=== PATIENT | female | born 1990 | race Caucasian/White ===

== ENCOUNTER 2016-12-13 08:34 | Emergency (ER) | payer OTHER ==
[2016-12-13 08:35] VITALS: BMI 20.4
[2016-12-13] MEDS ORDERED: Sodium Chloride 0.9% 1,000 ML IV STA (09:01)
[2016-12-13] MEDS ORDERED: Alum-Mag Hydrox-Simethicone Susp (30 mL) PO ONE (09:11)
[2016-12-13 09:33] LABS: BASO % 0.4 % (0.0-2.0); EOS # 0.1 K/uL (0.0-0.7); EOS % 1.1 % (0.0-4.0); HEMATOCRIT 41.1 % (34.0-47.0); LYMPH # 2.3 K/uL (1.0-4.3); LYMPH % 32.3 % (20.0-40.0); MEAN CELL VOLUME 88.8 fl (81.0-99.0); MEAN CORPUSCULAR HGB CONC 33.8 g/dL (33.0-37.0); MEAN PLATELET VOLUME 8.5 fl (7.2-11.7); MONO # 0.5 K/uL (0.0-0.8); MONO % 6.9 % (0.0-10.0); NEUT # 4.3 K/uL (1.8-7.0); NEUT % 59.3 % (50.0-75.0); NRBC % 0.1 % (0.0-0.0); WHITE BLOOD COUNT 7.2 K/uL (4.8-10.8)
[2016-12-13 09:43] LABS: ALB/GLOB RATIO 1.3 (1.0-2.1); ALKALINE PHOSPHATASE 79 U/L (38-126); ALT/SGPT 43 U/L (9-52); AST/SGOT 29 U/L (14-36); BILIRUBIN,TOTAL 0.8 mg/dl (0.2-1.3); BLOOD UREA NITROGEN 16 mg/dl (7-17); CALCIUM 9.8 mg/dL (8.4-10.2); CARBON DIOXIDE 24 mmol/L (22-30); CHLORIDE 103 mmol/L (98-107); GFR AFRICAN-AMERICAN > 60; GLUCOSE,RANDOM 99 mg/dL (65-105); LIPASE 76 U/L (23-300); POTASSIUM 3.7 MMOL/L (3.6-5.0); SODIUM 141 mmol/l (132-148)
--- NOTE | 2016-12-13 11:21 | US ---
HISTORY: upper abd pain; pls eval RUQ COMPARISON: None. TECHNIQUE: Sonographic evaluation of the right upper quadrant of the abdomen. FINDINGS: LIVER: Measures 13 cm in length. Normal echogenicity of the liver parenchyma. No mass. No intrahepatic bile duct dilatation. GALLBLADDER: Unremarkable. No gallstones. No sonographic Cummins sign elicited by the technologist. COMMON BILE DUCT: Measures to mm. No stones. No dilatation. PANCREAS: Unremarkable as visualized. No mass. No ductal dilatation. RIGHT KIDNEY: Measures 10 cm in length. Normal echogenicity. No calculus, mass, or hydronephrosis. AORTA: No aneurysmal dilatation. IVC: Unremarkable. OTHER FINDINGS: None . IMPRESSION: Unremarkable right upper quadrant abdominal ultrasound.
--- NOTE | 2016-12-13 13:02 | ED PDOC ---
HPI: Abdomen Time Seen by Provider: 12/13/16 08:59 Chief Complaint (Nursing): GI Problem Chief Complaint (Provider): Epigastric Pain History Per: Patient Onset/Duration Of Symptoms: Days (x 1) Current Symptoms Are (Timing): Still Present Location Of Pain/Discomfort: Epigastric Quality Of Discomfort: Cramping, Burning Associated Symptoms: Nausea, Vomiting Additional Complaint(s): Mikie is a 26 y/o female who presents to the ED with epigastric pain which she describes as cramping and burning with associated nonbloody, nonbilious vomiting and nausea since yesterday. Patient describes pain as nonradiating. She denies chest pain, shortness of breath, cough, or fever. She has not taken any medication for the pain, and denies alcohol or NSAID use. PMD: None Provided Past Medical History Reviewed: Historical Data, Nursing Documentation, Vital Signs - Medical History PMH: No Chronic Diseases - Surgical History Surgical History: Appendectomy - Family History Family History: States: Unknown Family Hx - Social History Current smoker - smoking cessation education provided: No Alcohol: None Drugs: Denies - Immunization History Hx Tetanus Toxoid Vaccination: No Hx Influenza Vaccination: No Hx Pneumococcal Vaccination: No - Home Medications Home Medications: Ambulatory Orders Medication Instructions Recorded Ondansetron [Zofran] 4 mg PO Q6H PRN #10 tab 12/13/16 Ranitidine HCl [Zantac] 150 mg PO BID #14 tablet 12/13/16 - Allergies Allergies/Adverse Reactions: Allergies Allergy/AdvReac Type Severity Reaction Status Date / Time No Known Allergies Allergy Verified 11/28/15 09:37 Review of Systems ROS Statement: Except As Marked, All Systems Reviewed And Found Negative Constitutional: Negative for: Fever Cardiovascular: Negative for: Chest Pain Respiratory: Negative for: Cough, Shortness of Breath Gastrointestinal: Positive for: Nausea, Vomiting (nonbloody, nonbilious), Abdominal Pain (cramping and burning, nonradiating) Physical Exam - Reviewed Nursing Documentation Reviewed: Yes Vital Signs Reviewed: Yes - Physical Exam Appears: Positive for: Non-toxic, No Acute Distress Head Exam: Positive for: ATRAUMATIC, NORMAL INSPECTION, NORMOCEPHALIC Skin: Positive for: Normal Color, Warm, Dry Eye Exam: Positive for: Normal appearance, EOMI, PERRL. Negative for: Nystagmus ENT: Positive for: Normal ENT Inspection Neck: Positive for: Normal, Painless ROM, Supple Cardiovascular/Chest: Positive for: Regular Rate, Rhythm. Negative for: Murmur Respiratory: Positive for: Normal Breath Sounds. Negative for: Wheezing, Respiratory Distress Gastrointestinal/Abdominal: Positive for: Normal Exam, Bowel Sounds, Soft, Tenderness (epigastric) Back: Positive for: Normal Inspection Extremity: Positive for: Normal ROM. Negative for: Deformity Neurologic/Psych: Positive for: Alert, Oriented - Laboratory Results Result Diagrams: 12/13/16 09:25 12/13/16 09:25 Medical Decision Making Medical Decision Making: Time: 9:01 Initial Impression: Epigastric Pain Initial Plan: --CMP --Lipase --Urine dipstick --Urine --CBC --blood work reivewd, unremarkable, neg --Pepcid --iv fluid --maalox --US abd unremarkable Time: 11:20 US Abdomen FINDINGS: LIVER: Measures 13 cm in length. Normal echogenicity of the liver parenchyma. No mass. No intrahepatic bile duct dilatation. GALLBLADDER: Unremarkable. No gallstones. No sonographic Cummins sign elicited by the technologist. COMMON BILE DUCT: Measures to mm. No stones. No dilatation. PANCREAS: Unremarkable as visualized. No mass. No ductal dilatation. RIGHT KIDNEY: Measures 10 cm in length. Normal echogenicity. No calculus, mass, or hydronephrosis. AORTA: No aneurysmal dilatation. IVC: Unremarkable. OTHER FINDINGS: None . IMPRESSION: Unremarkable right upper quadrant abdominal ultrasound. Time: 12:30 --Patient was reevaluated through primer inspector, Leroy. --Patient has improved and denies current symptoms. --Patient is stable for discharge, and was given prescriptions for Zantac and Zofran. --She was instructed to follow up at the clinic. Scribe Attestation: Documented by Bradley Oneal, acting as a scribe for Zackery Mcdaniels III, MD Provider Scribe Attestation: All medical record entries made by the Scribe were at my direction and personally dictated by me. I have reviewed the chart and agree that the record accurately reflects my personal performance of the history, physical exam, medical decision making, and the department course for this patient. I have also personally directed, reviewed, and agree with the discharge instructions and disposition. Disposition - Clinical Impression Clinical Impression: Gastritis, Abdominal pain - Patient ED Disposition Is Patient to be Admitted: No Counseled Patient/Family Regarding: Studies Performed, Diagnosis, Need For Followup, Rx Given - Disposition Referrals: [facility] [Outside] Disposition: Routine/Home Disposition Time: 12:40 Condition: STABLE Additional Instructions: Avoid NSAIDs, alcohol, spicy food or caffeine. Return to ER for any worse or new symptoms. Take medications as directed. Evite los NSAIDS (motrin, alleve or advil), el alcohol, los alimentos picantes o la cafena. Vuelva al ER para cualquier sntoma nuevo o peor. [place] los medicamentos segn las indicaciones. Prescriptions: Ondansetron [Zofran] 4 mg PO Q6H PRN #10 tab PRN Reason: Nausea/Vomiting Ranitidine HCl [Zantac] 150 mg PO BID #14 tablet Instructions: Gastritis (ED), Acute Abdominal Pain (ED), Epigastric Pain (ED) Forms: [facility] (Kazakh) Print Language: LITHUANIAN - POA Present On Arrival: None
[2016-12-13 13:07] VITALS: BP 126/76; PULSE 78; RESP 19; TEMP 96.7; O2SAT 98
--- NOTE | 2016-12-13 17:04 | ED PDOC ---
HPI: Abdomen Time Seen by Provider: 12/13/16 08:59 Chief Complaint (Nursing): GI Problem Chief Complaint (Provider): Epigastric Pain History Per: Patient, Finance Broker (Eddie EDT) Onset/Duration Of Symptoms: Days (x 1) Severity: Mild Location Of Pain/Discomfort: Epigastric. denies: RLQ, LLQ Quality Of Discomfort: Cramping, Burning Associated Symptoms: Nausea, Vomiting, Loss Of Appetite. denies: Diarrhea, Back Pain, Chest Pain Exacerbating Factors: None Alleviating Factors: None Additional Complaint(s): 26yo female c/o epigastric pain and burning for last 2 days. Symptoms associated w nausea and several episodes nonbloody vomiting. Denies radiation of pain, fever, dark/tarry stools or BRBPR. Has used Advil in past but not recently. Past Medical History Reviewed: Historical Data, Nursing Documentation, Vital Signs Vital Signs: Last Vital Signs Temp 96.7 F L 12/13/16 13:06 Pulse 78 12/13/16 13:06 Resp 19 12/13/16 13:06 BP 126/76 12/13/16 13:06 Pulse Ox 98 12/13/16 13:06 - Medical History PMH: No Chronic Diseases - Surgical History Surgical History: Appendectomy - Family History Family History: States: Unknown Family Hx - Social History Current smoker - smoking cessation education provided: No Alcohol: None Drugs: Denies - Immunization History Hx Tetanus Toxoid Vaccination: No Hx Influenza Vaccination: No Hx Pneumococcal Vaccination: No - Home Medications Home Medications: Ambulatory Orders Medication Instructions Recorded Ondansetron [Zofran] 4 mg PO Q6H PRN #10 tab 12/13/16 Ranitidine HCl [Zantac] 150 mg PO BID #14 tablet 12/13/16 - Allergies Allergies/Adverse Reactions: Allergies Allergy/AdvReac Type Severity Reaction Status Date / Time No Known Allergies Allergy Verified 11/28/15 09:37 Review of Systems ROS Statement: Except As Marked, All Systems Reviewed And Found Negative Constitutional: Negative for: Fever, Chills Eyes: Negative for: Pain ENT: Negative for: Nose Pain, Nose Discharge Cardiovascular: Negative for: Chest Pain, Palpitations Gastrointestinal: Positive for: Nausea, Vomiting, Abdominal Pain Genitourinary Female: Negative for: Dysuria, Frequency, Vaginal Bleeding Musculoskeletal: Negative for: Neck Pain, Arm Pain, Back Pain Skin: Negative for: Rash, Lesions Neurological: Negative for: Weakness, Numbness, Change in Speech, Dizziness Psych: Negative for: Anxiety Physical Exam - Reviewed Nursing Documentation Reviewed: Yes Vital Signs Reviewed: Yes - Physical Exam Appears: Positive for: Well, Non-toxic, No Acute Distress Head Exam: Positive for: ATRAUMATIC, NORMAL INSPECTION, NORMOCEPHALIC Skin: Positive for: Normal Color, Warm, DRY Eye Exam: Positive for: EOMI, Normal appearance, PERRL ENT: Positive for: Normal ENT Inspection Neck: Positive for: Normal, Painless ROM Cardiovascular/Chest: Positive for: Regular Rate, Rhythm Respiratory: Positive for: CNT, Normal Breath Sounds Gastrointestinal/Abdominal: Positive for: Normal Exam, Bowel Sounds, Soft. Negative for: Tenderness Back: Positive for: Normal Inspection Extremity: Positive for: Normal ROM Neurologic/Psych: Positive for: Alert, Oriented - Laboratory Results Result Diagrams: 12/13/16 09:25 12/13/16 09:25 - ECG O2 Sat by Pulse Oximetry: 98 Medical Decision Making Medical Decision Making: workup initiated for epigastric pain, preg neg IVF bolus, maalox, pepcid and zofran US abdomen performed, report states unremarkable Labs reviewed and no clinically significant abnormalities Over course of ED stay she improved, denied pain or nausea on re-eval. Abdomen was nontender. She will be discharged w zantac and zofran for followup in [facility], indications for return to ED discussed. hospital clerk used. Disposition - Clinical Impression Clinical Impression: Gastritis, Abdominal pain - Patient ED Disposition Is Patient to be Admitted: No Counseled Patient/Family Regarding: Studies Performed, Diagnosis, Need For Followup, Rx Given - Disposition Referrals: [facility] [Outside] Disposition: Routine/Home Disposition Time: 12:40 Condition: STABLE Additional Instructions: Avoid NSAIDs, alcohol, spicy food or caffeine. Return to ER for any worse or new symptoms. Take medications as directed. Evite los NSAIDS (motrin, alleve or advil), el alcohol, los alimentos picantes o la cafena. Vuelva al ER para cualquier sntoma nuevo o peor. [place] los medicamentos segn las indicaciones. Prescriptions: Ondansetron [Zofran] 4 mg PO Q6H PRN #10 tab PRN Reason: Nausea/Vomiting Ranitidine HCl [Zantac] 150 mg PO BID #14 tablet Instructions: Gastritis (ED), Acute Abdominal Pain (ED), Epigastric Pain (ED) Forms: [facility] (Irish) Print Language: GERMAN - POA Present On Arrival: None
== END 2016-12-13 13:07 | disposition home or self-care (01) ==
LOC: H.ER 08:34
DX: K29.70 Gastritis, unspecified, without bleeding (principal)
CPT/HCPCS: 76705; 80053; 81025; 83690; 85025; 99281; J2405; J7040

== ENCOUNTER 2018-08-01 09:28 | Emergency (ER) | payer OTHER ==
[2018-08-01 09:49] VITALS: RESP 16; O2SAT 100; BMI 21.7
[2018-08-01] MEDS ORDERED: cefTRIAXone (Rocephin) 250 mg Inj IM ONE (10:37)
[2018-08-01 10:55] LABS: SQUAMOUS EPITHIAL 21 /hpf (0-5); URINE AMORPHOUS SEDIMENT MODERATE /ul (<OCC); URINE BACTERIA RARE (<OCC); URINE BILIRUBIN NEGATIVE (NEGATIVE); URINE BLOOD NEGATIVE (NEGATIVE); URINE CLARITY TURBID (Clear); URINE COLOR YELLOW (YELLOW); URINE GLUCOSE (UA) NEG (NEGATIVE); URINE LEUKOCYTE ESTERASE MOD Leu/uL (Negative); URINE PROTEIN NEGATIVE (NEGATIVE); URINE UROBILINOGEN 0.2-1.0 mg/dL (0.2-1.0)
[2018-08-01] MEDS ORDERED: cefTRIAXone (Rocephin) 250 mg Inj ONE (10:56)
[2018-08-01 11:00] LABS: BASO % 0.5 % (0.0-2.0); EOS # 0.1 K/uL (0.0-0.7); EOS % 1.2 % (0.0-4.0); LYMPH # 1.9 K/uL (1.0-4.3); LYMPH % 24.3 % (20.0-40.0); MEAN CORPUSCULAR HGB CONC 33.7 g/dL (33.0-37.0); MEAN PLATELET VOLUME 8.4 fl (7.2-11.7); MONO # 0.6 K/uL (0.0-0.8); MONO % 7.2 % (0.0-10.0); NEUT # 5.2 K/uL (1.8-7.0); NEUT % 66.8 % (50.0-75.0); NRBC % 0.1 % (0.0-0.0); RBC 4.33 Mil/uL (3.80-5.20); RED CELL DISTRIBUTION WIDTH 13.7 % (11.5-14.5); WHITE BLOOD COUNT 7.7 K/uL (4.8-10.8)
[2018-08-01 11:14] LABS: BLOOD UREA NITROGEN 16 mg/dl (7-17); CALCIUM 9.2 mg/dL (8.4-10.2); GFR NON-AFRICAN AMERICAN > 60
--- NOTE | 2018-08-01 11:33 | ED PDOC ---
HPI: General Adult Time Seen by Provider: 08/01/18 09:39 Chief Complaint (Nursing): Abdominal Pain Chief Complaint (Provider): Abdominal Pain History Per: Patient History/Exam Limitations: no limitations Onset/Duration Of Symptoms: Days (1) Additional Complaint(s): 27 y/o female presents to the ED complaining of urination pain, vaginal discharge, and lower abdominal pain since 2 days ago. Patient notes she has a rash to her labia and is sexually active. She reports she occasionally uses condoms. Patient reports of a fever yesterday and came down with Tylenol, which no fever today. Patient denies history of STD. PMD: none provided Past Medical History Reviewed: Historical Data, Nursing Documentation, Vital Signs Vital Signs: Last Vital Signs Temp 98.8 F 08/01/18 09:48 Pulse 93 H 08/01/18 09:48 Resp 16 08/01/18 09:48 BP 115/70 08/01/18 09:48 Pulse Ox 100 08/01/18 09:48 Primary Care Provider: FAMILY PROVIDER,NO - Medical History PMH: Denies: Sexually Transmitted Disease - Surgical History Surgical History: Appendectomy - Family History Family History: States: Unknown Family Hx - Immunization History Hx Tetanus Toxoid Vaccination: No Hx Influenza Vaccination: No Hx Pneumococcal Vaccination: No - Home Medications Home Medications: Ambulatory Orders Medication Instructions Recorded Ondansetron [Zofran] 4 mg PO Q6H PRN #10 tab 12/13/16 Ranitidine HCl [Zantac] 150 mg PO BID #14 tablet 12/13/16 Acyclovir 400 mg PO TID #30 tablet 08/01/18 - Allergies Allergies/Adverse Reactions: Allergies Allergy/AdvReac Type Severity Reaction Status Date / Time No Known Allergies Allergy Verified 11/28/15 09:37 Review of Systems ROS Statement: Except As Marked, All Systems Reviewed And Found Negative Physical Exam - Reviewed Nursing Documentation Reviewed: Yes Vital Signs Reviewed: Yes - Physical Exam Appears: Positive for: Well, Non-toxic, No Acute Distress Head Exam: Positive for: ATRAUMATIC, NORMAL INSPECTION, NORMOCEPHALIC Skin: Positive for: Normal Color, Warm, DRY Eye Exam: Positive for: EOMI, Normal appearance, PERRL ENT: Positive for: Normal ENT Inspection Neck: Positive for: Normal, Painless ROM Cardiovascular/Chest: Positive for: Regular Rate, Rhythm Respiratory: Positive for: CNT, Normal Breath Sounds Gastrointestinal/Abdominal: Positive for: Normal Exam, Soft Pelvic Exam: Positive for: External Exam Normal (Perform with RN in the room.), Discharge (Thick yellow discharge in vaginal bulge), Other (Open vesicles to labia. cervix with proximately 4 open vesicles. No cervical tender.). Negative for: Tender Adnexa Back: Positive for: Normal Inspection Extremity: Positive for: Normal ROM Neurological/Psych: Positive for: Awake, Alert, Normal Tone - Laboratory Results Result Diagrams: 08/01/18 10:45 08/01/18 10:45 Lab Results: Urine Color Yellow (YELLOW) 08/01/18 10:30 Urine Clarity Turbid (Clear) 08/01/18 10:30 Urine pH 7.0 (5.0-8.0) 08/01/18 10:30 Ur Specific [place] 1.019 (1.003-1.030) 08/01/18 10:30 Urine Protein Negative mg/dL (NEGATIVE) 08/01/18 10:30 Urine Glucose (UA) Neg mg/dL (NEGATIVE) 08/01/18 10:30 Urine Ketones Negative mg/dL (NEGATIVE) 08/01/18 10:30 Urine Blood Negative (NEGATIVE) 08/01/18 10:30 Urine Nitrate Negative (NEGATIVE) 08/01/18 10:30 Urine Bilirubin Negative (NEGATIVE) 08/01/18 10:30 Urine Urobilinogen 0.2-1.0 mg/dL (0.2-1.0) 08/01/18 10:30 Ur Leukocyte Esterase Mod Fatou/uL (Negative) 08/01/18 10:30 Urine RBC (Auto) 7 /hpf (0-3) H 08/01/18 10:30 Urine Microscopic WBC 18 /hpf (0-5) H 08/01/18 10:30 Ur Squamous Epith Cells 21 /hpf (0-5) H 08/01/18 10:30 Amorphous Sediment Moderate /ul (<OCC) H 08/01/18 10:30 Urine Bacteria Rare (<OCC) 08/01/18 10:30 - ECG O2 Sat by Pulse Oximetry: 100 Medical Decision Making Medical Decision Making: Time:1036 Impression: STI most likely herpes, possible Chlamydia and gonorrhea. No indication of PID on physcial. Pt is treated for herpes, chlamydia, and gonorrhea. Patient is given prescription for herpes in the ED. Reassess. Plan: -BMP -CBC -Chlamydia -Rocephin 250mg -Zithromax 1000mg PO -Zovirax 400mg PO -Culture Genital -HIV rapid -Urinalysis DIscharged home with Rx and follow up instructions. ----- Scribe Attestation: Documented by Sona Nails, acting as a scribe for Caitlin Shah Provider Scribe Attestation: All medical record entries made by the Scribe were at my direction and personally dictated by me. I have reviewed the chart and agree that the record accurately reflects my personal performance of the history, physical exam, medical decision making, and the department course for this patient. I have also personally directed, reviewed, and agree with the discharge instructions and disposition. Disposition - Clinical Impression Clinical Impression: Herpes genitalis in women, Sexually transmitted infection - Disposition Disposition Time: 11:18 Condition: IMPROVED Prescriptions: Acyclovir 400 mg PO TID #30 tablet Instructions: Genital Herpes (DC), Sexually-Transmitted Diseases (DC), STD Pre vention Forms: [employer] (Malay) Print Language: ROMANSH
[2018-08-01] MEDS ORDERED: Sterile Water 10 ML IV ONE (12:04)
[2018-08-01 12:22] VITALS: BP 110/78; PULSE 81; TEMP 98
== END 2018-08-01 12:22 | disposition home or self-care (01) ==
LOC: H.ER 09:28
DX: A60.00 Herpesviral infection of urogenital system, unspecified (principal)
CPT/HCPCS: 80048; 81003; 81025; 85025; 86695; 86696; 87070; 87390; 87491; 87591; 96372; 99284; J0696